=== PATIENT | female | born 1995 ===

== ENCOUNTER → 2024-10-20 11:06 | Outpatient (CLI) | payer OTHER, SELFPAY ==
--- NOTE | 2024-10-20 11:07 | DI.US.S_ITS ---
PROCEDURE: US PELVIC COMPLETE INDICATIONS: asses for structural anomaly TECHNIQUE: Real-time scanning was performed of the pelvic organs, with image documentation. Additional endovaginal scanning was necessary due to incomplete visualization of the adnexal and endometrial structures by transabdominal scanning. COMPARISON: None. FINDINGS: Uterus: 7 x 2.9 x 4.7 cm. Endometrium measures 9 mm, within normal limits for age. Ovaries: Mildly enlarged right ovary measuring 15 cc. Left ovary measures 10 cc. Fewer than 12 follicles are seen per ovary. Other: No pathologic free abdominal or pelvic fluid. IMPRESSION: No acute or significant pelvic abnormality by ultrasound. Mildly enlarged right ovary is present measuring 15 cc, but without dominant solid or cystic lesion. Dictated by: Thomas Lares M.D. on 10/20/2024 at 12:53 Approved by: Thomas Lares M.D. on 10/20/2024 at 12:54
== END ==
LOC: US 11:07
PROVIDERS: PCP Family Medicine; Referring Provider Family Medicine; Visit Provider Obstetrics & Gynecology
DX: Z30.09 Encounter for other general counseling and advice on contraception (principal); Z86.018 Personal history of other benign neoplasm; N83.8 Other noninflammatory disorders of ovary, fallopian tube and broad ligament; Z78.9 Other specified health status
CPT/HCPCS: 36415; 76830; 76856; 84144; 84999

== ENCOUNTER → 2024-10-20 11:49 | Outpatient (CLI) | payer OTHER, SELFPAY | PROVIDERS: PCP Family Medicine; Referring Provider Obstetrics & Gynecology; Visit Provider Obstetrics & Gynecology | DX: Z78.9 Other specified health status (principal) | CPT/HCPCS: 36415; 84144; 84999 ==

== ENCOUNTER 2025-01-02 14:02 | Emergency (ER) | payer OTHER, SELFPAY ==
[2025-01-02] VITALS (12 sets, daily range): BP systolic 105–155; BP diastolic 56–89; PULSE 68–86; RESP 13–23; TEMP 36.7; O2SAT 92–100; BMI 22.6
--- NOTE | 2025-01-02 14:39 | ED_ITS ---
HPI - Abdominal Pain <Sharon Brooks PA-C - Last Filed: 01/02/25 19:13> General Chief Complaint: Abdominal Pain Stated Complaint: Blood in stool. stomach pain x 1 day Time Seen by Provider: 01/02/25 14:38 Source: patient Mode of arrival: Ambulatory History of Present Illness HPI narrative: Ms. Ellis is a pleasant 29-year-old female, otherwise healthy with no reported past medical history who presents to the emergency department with her for abdominal pain and bright red blood in her stool x1 day. Patient states last night she experienced sudden sharp pain in the epigastrium region of her abdomen that radiated to the left side of her chest. Lying down made this pain worse. The pain seemed to spread to around her umbilical area, she attempted to have a bowel movement with no relief, so she went to sleep. Reports that she has intermittently experienced left-sided chest pain in the past so she was not concerned. When she woke up this morning she reports that she generally felt better and went to work. She is a teacher. She is unable to go to the bathroom often so on her lunch break she went to the bathroom and while attempting to have a bowel movement had periumbilical abdominal pain, rectal pain, and then noticed bright red blood in the toilet with brown stool. This is the 1st time she has ever had bright red blood in the toilet, reports she has had anal fissures in the past but this did not feel the same. She has not had any chest pain today. She otherwise feels well and denies any fevers, chills, nausea, vomiting diarrhea, constipation. No melena. No dysuria or vaginal bleeding. Reports her menstrual cycle ended a few days ago. She does not regularly use NSAIDs. She would have a glass of wine last night. No prior abdominal surgeries or personal or family history of inflammatory bowel disease. No rectal intercourse. Related Data Previous Rx's ?Medication ?Instructions ?Recorded pantoprazole 40 mg tablet,delayed 40 mg PO DAILY 2 virgil carrillo #14 tabs 01/02/25 release (Protonix) Allergies Allergy/AdvReac Type Severity Reaction Status Date / Time No Known Drug Allergies Allergy Unverified 09/28/24 08:08 Review of Systems <Sharon Brooks PA-C - Last Filed: 01/02/25 19:13> Review of Systems ROS Unobtainable: All systems reviewed & are unremarkable except as noted in HPI and below Patient History <Sharon Brooks PA-C - Last Filed: 01/02/25 19:13> Medical History Attempting to conceive Social History Smoking Status: Never smoker Smoking Status: Never smoker Exam <Sharon Brooks PA-C - Last Filed: 01/02/25 19:13> Narrative Exam Narrative: GENERAL: 29 year old patient appears stated age. Well-developed patient, in no acute distress. HEAD: Atraumatic. Normocephalic. EYES: No scleral icterus. No injection or drainage. NECK: Trachea midline. Cervical ROM intact. CARDIOVASCULAR: Regular rate and rhythm. RESPIRATORY: ?Nonlabored respirations. ?Speaking in clear, full sentences. ?Clear to auscultation. Breath sounds equal bilaterally. No wheezes, rales, or rhonchi. ? GASTROINTESTINAL: Abdomen soft, non-tender, nondistended. Bowel sounds present. Patient reports subjective pain and periumbilical region. Negative Lockwood's sign or McBurney's point tenderness. Patient gave verbal consent for external rectal exam. Exam reveals no obvious hemorrhoids or fissures, no swelling or abscess. EXTREMITIES: No LE edema or calf tenderness BL. BACK: No CVA tenderness. NEURO: AOx3. ?Clear speech. ?Moves all 4 extremities appropriately. SKIN: No rash or erythema of visible areas Initial Vital Signs Initial Vital Signs: Vital Signs Temperature 98.1 F 01/02/25 14:07 Pulse Rate 86 01/02/25 14:07 Respiratory Rate 17 01/02/25 14:07 Blood Pressure 155/89 H 01/02/25 14:07 Pulse Oximetry 100 01/02/25 14:07 Oxygen Delivery Method Room Air 01/02/25 14:07 <Macie Mcdonald MD - Last Filed: 01/02/25 23:51> Initial Vital Signs Initial Vital Signs: Vital Signs Temperature 98.1 F 01/02/25 14:07 Pulse Rate 86 01/02/25 14:07 Respiratory Rate 17 01/02/25 14:07 Blood Pressure 155/89 H 01/02/25 14:07 Pulse Oximetry 100 01/02/25 14:07 Oxygen Delivery Method Room Air 01/02/25 14:07 Course <Sharon Brooks PA-C - Last Filed: 01/02/25 19:13> Orders Ordered: ED Orders 01/02/25 15:00 Complete Blood Count AUTO DIFF Stat Comprehensive Metabolic Panel Stat Lipase Stat 01/02/25 15:25 Urine Culture Stat Urine Microscopic Stat Discontinued Medications Al Hydrox/Mg Hydrox/Simethicone 30 ml/ Lidocaine HCl 15 ml 0 ml PO NOW ONE Stop: 01/02/25 18:43 Last Admin: 01/02/25 19:03 Dose: 45 ml Documented By: CAL Sodium Chloride (Normal Saline 0.9%) 1,000 mls @ 1,000 mls/hr IV BOLUS ONE Stop: 01/02/25 15:49 Last Infusion: 01/02/25 17:14 Dose: Infused Documented By: Admin: 01/02/25 15:14 Dose: 1,000 mls/hr Documented By: CAL Ondansetron HCl (Ondansetron 4 Mg/2 Ml Inj) 4 mg IV NOW PRN PRN Reason: Nausea And Vomiting Ondansetron HCl (Ondansetron 4 Mg Odt) 4 mg PO NOW PRN PRN Reason: Nausea And Vomiting Pantoprazole Sodium (Pantoprazole 40 Mg Vial) 40 mg IV NOW ONE Stop: 01/02/25 14:51 Last Admin: 01/02/25 15:14 Dose: 40 mg Documented By: CAL Vital Signs Vital signs: Vital Signs - 8 hr 01/02/25 16:00 01/02/25 16:13 01/02/25 16:13 Pulse Rate 69 70 Respiratory Rate 19 18 Blood Pressure 105/57 L Pulse Oximetry 100 100 01/02/25 16:32 01/02/25 16:37 01/02/25 16:37 Pulse Rate 82 68 Respiratory Rate 16 Blood Pressure 109/62 Pulse Oximetry 92 100 01/02/25 17:00 01/02/25 17:00 01/02/25 17:19 Pulse Rate 75 Respiratory Rate 13 Blood Pressure 108/68 112/62 Pulse Oximetry 100 01/02/25 17:19 01/02/25 17:30 01/02/25 17:30 Pulse Rate 69 71 Respiratory Rate 13 14 Blood Pressure 105/56 L Pulse Oximetry 100 100 01/02/25 18:00 01/02/25 18:00 01/02/25 18:30 Pulse Rate 75 Respiratory Rate 15 Blood Pressure 106/59 L 110/61 Pulse Oximetry 100 01/02/25 18:30 01/02/25 19:00 01/02/25 19:00 Pulse Rate 84 70 Respiratory Rate 23 15 Blood Pressure 116/67 Pulse Oximetry 99 100 <Macie Mcdonald MD - Last Filed: 01/02/25 23:51> Orders Ordered: ED Orders 01/02/25 15:00 Complete Blood Count AUTO DIFF Stat Comprehensive Metabolic Panel Stat Lipase Stat 01/02/25 15:25 Urine Culture Stat Urine Microscopic Stat Discontinued Medications Al Hydrox/Mg Hydrox/Simethicone 30 ml/ Lidocaine HCl 15 ml 0 ml PO NOW ONE Stop: 01/02/25 18:43 Last Admin: 01/02/25 19:03 Dose: 45 ml Documented By: CAL Sodium Chloride (Normal Saline 0.9%) 1,000 mls @ 1,000 mls/hr IV BOLUS ONE Stop: 01/02/25 15:49 Last Infusion: 01/02/25 17:14 Dose: Infused Documented By: Admin: 01/02/25 15:14 Dose: 1,000 mls/hr Documented By: CAL Ondansetron HCl (Ondansetron 4 Mg/2 Ml Inj) 4 mg IV NOW PRN PRN Reason: Nausea And Vomiting Ondansetron HCl (Ondansetron 4 Mg Odt) 4 mg PO NOW PRN PRN Reason: Nausea And Vomiting Pantoprazole Sodium (Pantoprazole 40 Mg Vial) 40 mg IV NOW ONE Stop: 01/02/25 14:51 Last Admin: 01/02/25 15:14 Dose: 40 mg Documented By: CLA Vital Signs Vital signs: Vital Signs - 8 hr 01/02/25 16:00 01/02/25 16:13 01/02/25 16:13 Pulse Rate 69 70 Respiratory Rate 19 18 Blood Pressure 105/57 L Pulse Oximetry 100 100 01/02/25 16:32 01/02/25 16:37 01/02/25 16:37 Pulse Rate 82 68 Respiratory Rate 16 Blood Pressure 109/62 Pulse Oximetry 92 100 01/02/25 17:00 01/02/25 17:00 01/02/25 17:19 Pulse Rate 75 Respiratory Rate 13 Blood Pressure 108/68 112/62 Pulse Oximetry 100 01/02/25 17:19 01/02/25 17:30 01/02/25 17:30 Pulse Rate 69 71 Respiratory Rate 13 14 Blood Pressure 105/56 L Pulse Oximetry 100 100 01/02/25 18:00 01/02/25 18:00 01/02/25 18:30 Pulse Rate 75 Respiratory Rate 15 Blood Pressure 106/59 L 110/61 Pulse Oximetry 100 01/02/25 18:30 01/02/25 19:00 01/02/25 19:00 Pulse Rate 84 70 Respiratory Rate 23 15 Blood Pressure 116/67 Pulse Oximetry 99 100 MDM - Abdominal Pain <Sharon Brooks PA-C - Last Filed: 01/02/25 19:13> Medical Records Attestation: I reviewed the patient's medical records. Lab Data 01/02/25 15:00 01/02/25 15:00 Labs: Lab Results 01/02/25 01/02/25 Range/Units 15:00 15:25 WBC 5.3 (4.5-11.0) X10^3/uL RBC 5.42 H (4.0-5.2) X10^6/uL Hgb 12.6 (12.0-16.0) g/dL Hct 39.2 (36-46) % MCV 72.3 L (80-100) fL MCH 23.2 L (26-34) PG MCHC 32.1 (30-36) % RDW 14.3 (11.6-14.8) % Plt Count 196 (150-400) X10^3/uL Neut % (Auto) 50.9 (50-75) % Lymph % (Auto) 37.7 (25-40) % [place] % (Auto) 8.3 (3-14) % Eos % (Auto) 2.1 (2-4) % Baso % (Auto) 1.0 (0-2) % Neut # (Auto) 2700 (1760-8292) /uL Lymph # (Auto) 2000 (9535-3120) /uL [place] # (Auto) 400 (0-900) /uL Eos # (Auto) 100 (0-450) /uL Baso # (Auto) 100 (0-100) /uL Sodium 141 (137-145) mmol/L Potassium 3.7 (3.4-5.1) mmol/L Chloride 104 (98-107) mmol/L Carbon Dioxide 26 (22-32) mmol/L BUN 22 H (7-17) mg/dL Creatinine 0.73 (0.52-1.04) mg/dL Estimated GFR > 60 (>60) mL/min BUN/Creatinine Ratio 30.1 H (6-22) Glucose 87 (70-99) mg/dL Calcium 9.3 (8.4-10.2) mg/dL Total Bilirubin 1.7 H (0.2-1.3) mg/dL AST 26 (14-36) IU/L ALT 14 (<35) IU/L Alkaline Phosphatase 43 (38-126) U/L Total Protein 7.9 (6.3-8.2) g/dL Albumin 5.0 (3.5-5.0) g/dL Globulin 2.9 (1.7-4.1) g/dL Albumin/Globulin Ratio 1.7 (1.0-2.8) Lipase 144 (23-300) U/L Urine RBC None seen (0-5/HPF) Urine WBC 0-1/hpf (0-5/HPF) Ur Squamous Epith Cells 0-1 /hpf (0-5/HPF) Urine Bacteria Occasional (0-1) (None) Ur Culture Indicated? Cult not indicated Vol Urine Centrifuged 10ml (spun) Point of care testing: Point of Care Testing Test Results Negative Urine Dip Bedside Urine Glucose Negative Bedside Urine Bilirubin - Negative Bedside Urine Ketone - Negative Urine Specific [place] 1.010 Bedside Urine Occult Blood - Negative Bedside Urine pH 7.5 Bedside Urine Protein - Negative Bedside Urine Urobilinogen - Negative Bedside Urine Nitrite - Negative Bedside Urine Leukocytes - Negative Esterase Imaging Data Chest x-ray: Radiologist's Impression: PROCEDURE: XR CHEST 1V INDICATIONS: epigastric/left chest pain TECHNIQUE: One view of the chest was acquired. COMPARISON: None. FINDINGS: Surgical changes and devices: None. Lungs and pleura: Lungs are clear. No pleural effusions or pneumothorax. Mediastinum: Mediastinal contours appear normal. Heart size is normal. Bones and chest wall: No suspicious bony lesions. Overlying soft tissues appear unremarkable. IMPRESSION: No acute cardiopulmonary abnormality is seen. Dictated by: Jose Trevino M.D. on 01/02/2025 at 16:28 Approved by: Jose Trevino M.D. on 01/02/2025 at 16:29 CT scan - abdomen/pelvis: Radiologist's Impression: PROCEDURE: CT ABDOMEN PELVIS W CON INDICATIONS: BRB in stool; rectal and epigastric pain TECHNIQUE: After the administration of intravenous contrast, axial sections acquired from the lung bases to the pubic symphysis. Coronal and sagittal reformats were performed. For radiation dose reduction, the following was used: automated exposure control, adjustment of mA and/or kV according to patient size. COMPARISON: None. FINDINGS: Image quality: Diagnostic. Lower Chest: No significant findings. ABDOMEN: Liver: No solid mass. Gallbladder: No radiopaque gallstones or wall thickening. Biliary ducts: No biliary dilation. Pancreas: No ductal dilation. Spleen: Size is within normal limits. Adrenal Glands: No adrenal nodules. Kidneys and Ureters: No hydronephrosis. No solid mass. No complex renal cystic lesion which requires follow up. Stomach and Bowel: Normal colonic caliber, without significant wall thickening. Large amount of fecal burden seen throughout the colon. No abnormal wall thickening. Normal appendix. No evidence for small bowel obstruction or associated inflammatory changes. Peritoneum: No abnormal intraperitoneal fluid. No free air. Ventral Wall: No significant ventral hernia. Abdominal Nodes: No retroperitoneal or mesenteric adenopathy by size criteria. Vessels: Aorta and inferior vena cava are normal in size. PELVIS: Pelvic Organs: Unremarkable. Bladder: No bladder wall thickening, accounting for underdistention. Pelvic Nodes: No enlarged lymph nodes. Miscellaneous: No inguinal hernias are seen. Bones: No aggressive osseous abnormality. Visualized osseous structures appear intact without acute fracture or focal destructive lesion. No acute compression fractures of the imaged spine. IMPRESSION: CT abdomen and pelvis without acute abnormalities to explain patient's symptoms. No suspicious distal colonic or rectal mass lesions. Recommend further evaluation with direct visualization. Normal appendix. Large fecal material seen throughout the colon. Query history of constipation. No evidence for obstructive uropathy. Dictated by: Charles Anderson M.D. on 01/02/2025 at 17:54 Approved by: Charles Anderson M.D. on 01/02/2025 at 18:17 MDM Narrative Medical decision making narrative: 29-year-old female, otherwise healthy with no reported past medical history who presents to the emergency department with her for abdominal pain and bright red blood in her stool x1 day. Differential diagnosis includes but is not limited to gastroesophageal reflux disease, gastritis, pancreatitis, rectal fissure, hemorrhoid, colitis, diverticulitis, etc. On exam the patient is in no acute distress, nontoxic appearing, vital signs appropriate. Abdominal exam reveals subjective periumbilical discomfort but no tenderness rebound or guarding. External rectal exam reveals no obvious fissure or hemorrhoid. Given history of epigastric and periumbilical abdominal pain, rectal pain and bright red blood in the stool, with short-lived left-sided chest pain last night that is not been present today, we will obtain CBC, CMP, lipase, UA, chest x-ray can CT abdomen pelvis with IV contrast treat with IV fluids and Protonix. Labs reveal normal WBC count 5.3, slightly elevated RBC count 5.42, hemoglobin 12.6 hematocrit 39.2. CMP reveals normal sodium 141, potassium 3.7, slight elevation BUN 22 creatinine normal 0.73, BUN creatinine ratio was 30.1. Glucose 87. Elevation of total bilirubin 1.7, remainder of LFTs are normal, lipase, 144. Urinalysis negative, negative. 1600: Re-examined patient, she is feeling well, still waiting on CT, reviewed all lab work, she denies a known history of elevated bilirubin. 1800: Contacted CT as we are still waiting on results, CT confirmed that her scan is in a queue awaiting to be read, not yet read. 1835: Printed and discussed chest x-ray and abdominal CT results with the patient and her at the bedside. Chest x-ray reveals no acute cardiopulmonary abnormality. Abdominal CT reveals no acute abnormalities to explain the patient's symptoms, normal appendix, large fecal material seen throughout the colon. Discussed with the patient diagnosis of lower GI bleed with suspicion for internal rectal fissure or hemorrhoid secondary to her significant constipation. She still is able to pass spontaneous bowel movements. Reports that she is actually struggled with constipation for many years. Discussed that I would like her to start taking MiraLax daily in addition to increasing hydration, fruits and vegetables. Given her epigastric pain, we also discussed possibilities of GERD or gastritis, we will trial GI cocktail in addition to Protonix. She did do well with GI cocktail here in the ED. Advised patient follow up with PCP for colonoscopy and further management. Discussed strict ER return precautions. Patient verbalized understanding of all information is agreeable with the plan, she is tolerating p.o., abdominal exam benign, stable for discharge home. <Macie Mcdonald MD - Last Filed: 01/02/25 23:51> Lab Data Labs: Lab Results 01/02/25 01/02/25 Range/Units 15:00 15:25 WBC 5.3 (4.5-11.0) X10^3/uL RBC 5.42 H (4.0-5.2) X10^6/uL Hgb 12.6 (12.0-16.0) g/dL Hct 39.2 (36-46) % MCV 72.3 L (80-100) fL MCH 23.2 L (26-34) PG MCHC 32.1 (30-36) % RDW 14.3 (11.6-14.8) % Plt Count 196 (150-400) X10^3/uL Neut % (Auto) 50.9 (50-75) % Lymph % (Auto) 37.7 (25-40) % [place] % (Auto) 8.3 (3-14) % Eos % (Auto) 2.1 (2-4) % Baso % (Auto) 1.0 (0-2) % Neut # (Auto) 2700 (5634-9883) /uL Lymph # (Auto) 2000 (8491-6508) /uL [place] # (Auto) 400 (0-900) /uL Eos # (Auto) 100 (0-450) /uL Baso # (Auto) 100 (0-100) /uL Sodium 141 (137-145) mmol/L Potassium 3.7 (3.4-5.1) mmol/L Chloride 104 (98-107) mmol/L Carbon Dioxide 26 (22-32) mmol/L BUN 22 H (7-17) mg/dL Creatinine 0.73 (0.52-1.04) mg/dL Estimated GFR > 60 (>60) mL/min BUN/Creatinine Ratio 30.1 H (6-22) Glucose 87 (70-99) mg/dL Calcium 9.3 (8.4-10.2) mg/dL Total Bilirubin 1.7 H (0.2-1.3) mg/dL AST 26 (14-36) IU/L ALT 14 (<35) IU/L Alkaline Phosphatase 43 (38-126) U/L Total Protein 7.9 (6.3-8.2) g/dL Albumin 5.0 (3.5-5.0) g/dL Globulin 2.9 (1.7-4.1) g/dL Albumin/Globulin Ratio 1.7 (1.0-2.8) Lipase 144 (23-300) U/L Urine RBC None seen (0-5/HPF) Urine WBC 0-1/hpf (0-5/HPF) Ur Squamous Epith Cells 0-1 /hpf (0-5/HPF) Urine Bacteria Occasional (0-1) (None) Ur Culture Indicated? Cult not indicated Vol Urine Centrifuged 10ml (spun) Point of care testing: Point of Care Testing Test Results Negative Urine Dip Bedside Urine Glucose Negative Bedside Urine Bilirubin - Negative Bedside Urine Ketone - Negative Urine Specific [place] 1.010 Bedside Urine Occult Blood - Negative Bedside Urine pH 7.5 Bedside Urine Protein - Negative Bedside Urine Urobilinogen - Negative Bedside Urine Nitrite - Negative Bedside Urine Leukocytes - Negative Esterase Discharge Plan Departure Patient Disposition: Home Clinical Impression: Blood in stool, sharri, Total bilirubin, elevated Constipation Qualifiers: Constipation type: unspecified constipation type Qualified Code(s): K59.00 - Constipation, unspecified Instructions: DI for Gastroesophageal Reflux Disease (GERD), DI for Constipation, DI for Rectal Bleeding Activity Restrictions/Additional Instructions: Dear Ms. Hendricksone, Thank you for coming to the emergency department. Today you were evaluated for abdominal pain in addition to rectal bleeding. Overall your lab work and imaging was reassuring and at this time you do not need to be admitted to the hospital around emergent surgery. Your CT scan did reveal a significant amount of stool prior colon and I would like you to start taking MiraLax daily to help soften stools. This will also help to prevent constipation and rectal pain and potentially continued rectal bleeding. Please use 1 serving of MiraLax in about 4 oz of water daily for at least the next 1-2 months to help regulate your bowel movements. You can take more than 1 serving of MiraLax if needed, especially on the weekend as we discussed. [id number] Preparation H can help with hemorroids. If you do have a painful bowel movement, soaking in Epsom salt bath can be helpful. Please also increase hydration, increase fiber rich foods in your diet such as leafy greens, pains, fruits. Please follow up with your primary care doctor for colonoscopy for further evaluation of your rectal bleeding. As we discussed, I have also prescribed you Protonix to help with any possible acid reflux, decreasing spicy or acidic foods in the diet in addition to NSAIDs and alcohol can help with the symptoms. Your labs revealed a slightly elevated Total Bilirubin of 1.7 (normal 0.2-1.3). Please have this rechecked with your primary care doctor. Please return to the emergency department if you develop severe pain, increased bleeding associated with lightheadedness, dizziness or shortness of breath, fevers or any other concerns. Please follow up with your primary care doctor within the next 2-3 days for ER follow-up. (If you do not have a PCP you can call [phone]. ?to schedule an appointment with an [facility] Primary Care Provider) IF YOU DEVELOP ANY NEW OR WORSENING SYMPTOMS, RETURN TO THE ER! Please read the attached instructions, they highlight more specific treatments and interventions for you at home. Thank you for letting me participate in your care, Sharon Brooks PA-C Prescriptions: New pantoprazole [Protonix] 40 mg tablet,delayed release (DR/EC) 40 mg PO DAILY 14 Days Qty: 14 0RF Referrals: [facility] [Provider Group] Referral Note: Colonoscopy Bettina Smith DO [Primary Care Provider, Family Practice] Stand Alone Forms: Patient Portal/API ED Sign-out <Macie Mcdonald MD - Last Filed: 01/02/25 23:51> [facility]: I was immediately available in the department for consultation throughout this patient's visit. Macie Mcdonald MD
--- NOTE | 2025-01-02 14:50 | DI.CT.S_ITS ---
PROCEDURE: CT ABDOMEN PELVIS W CON INDICATIONS: BRB in stool; rectal and epigastric pain TECHNIQUE: After the administration of intravenous contrast, axial sections acquired from the lung bases to the pubic symphysis. Coronal and sagittal reformats were performed. For radiation dose reduction, the following was used: automated exposure control, adjustment of mA and/or kV according to patient size. COMPARISON: None. FINDINGS: Image quality: Diagnostic. Lower Chest: No significant findings. ABDOMEN: Liver: No solid mass. Gallbladder: No radiopaque gallstones or wall thickening. Biliary ducts: No biliary dilation. Pancreas: No ductal dilation. Spleen: Size is within normal limits. Adrenal Glands: No adrenal nodules. Kidneys and Ureters: No hydronephrosis. No solid mass. No complex renal cystic lesion which requires follow up. Stomach and Bowel: Normal colonic caliber, without significant wall thickening. Large amount of fecal burden seen throughout the colon. No abnormal wall thickening. Normal appendix. No evidence for small bowel obstruction or associated inflammatory changes. Peritoneum: No abnormal intraperitoneal fluid. No free air. Ventral Wall: No significant ventral hernia. Abdominal Nodes: No retroperitoneal or mesenteric adenopathy by size criteria. Vessels: Aorta and inferior vena cava are normal in size. PELVIS: Pelvic Organs: Unremarkable. Bladder: No bladder wall thickening, accounting for underdistention. Pelvic Nodes: No enlarged lymph nodes. Miscellaneous: No inguinal hernias are seen. Bones: No aggressive osseous abnormality. Visualized osseous structures appear intact without acute fracture or focal destructive lesion. No acute compression fractures of the imaged spine. IMPRESSION: CT abdomen and pelvis without acute abnormalities to explain patient's symptoms. No suspicious distal colonic or rectal mass lesions. Recommend further evaluation with direct visualization. Normal appendix. Large fecal material seen throughout the colon. Query history of constipation. No evidence for obstructive uropathy. Dictated by: Charles Anderson M.D. on 01/02/2025 at 17:54 Approved by: Charles Anderson M.D. on 01/02/2025 at 18:17
--- NOTE | 2025-01-02 14:50 | DI.RAD.S_ITS ---
PROCEDURE: XR CHEST 1V INDICATIONS: epigastric/left chest pain TECHNIQUE: One view of the chest was acquired. COMPARISON: None. FINDINGS: Surgical changes and devices: None. Lungs and pleura: Lungs are clear. No pleural effusions or pneumothorax. Mediastinum: Mediastinal contours appear normal. Heart size is normal. Bones and chest wall: No suspicious bony lesions. Overlying soft tissues appear unremarkable. IMPRESSION: No acute cardiopulmonary abnormality is seen. Dictated by: Jose Trevino M.D. on 01/02/2025 at 16:28 Approved by: Jose Trevino M.D. on 01/02/2025 at 16:29
[2025-01-02 15:08] LABS: Add Manual Diff / Slide Review NO; Hematocrit 39.2 % (36-46); Hemoglobin 12.6 g/dL (12.0-16.0); Lymphocytes Absolute Auto 2000 /uL (1100-4500); Mean Corpuscular HGB Conc 32.1 % (30-36); Mean Corpuscular Hemoglobin 23.2 PG (26-34); Mean Corpuscular Volume 72.3 fL (80-100); Platelet Count 196 X10^3/uL (150-400)
[2025-01-02] MEDS: SODIUM CHLORIDE 0.9% 1,000 ML 1000 ML IV (15:14)
[2025-01-02] MEDS: PANTOPRAZOLE 40 MG VIAL IV (15:14)
[2025-01-02 15:21] LABS: Alanine Aminotransferase 14 IU/L (<35); Albumin 5.0 g/dL (3.5-5.0); Albumin Globulin Ratio 1.7 (1.0-2.8); Alkaline Phosphatase 43 U/L (38-126); Blood Urea Nitrogen 22 mg/dL (7-17); Calcium 9.3 mg/dL (8.4-10.2); Carbon Dioxide 26 mmol/L (22-32); Chloride 104 mmol/L (98-107); Estimated Glomerular Filt Rate > 60 mL/min (>60); Globulin 2.9 g/dL (1.7-4.1); Glucose 87 mg/dL (70-99); HEMOLYSIS < 15 (0-50); Lipase 144 U/L (23-300); Potassium 3.7 mmol/L (3.4-5.1); Sodium 141 mmol/L (137-145); Total Protein 7.9 g/dL (6.3-8.2)
[2025-01-02 15:53] LABS: Culture Indicated Urine Cult Not Indicated
[2025-01-02] MEDS: MAG HYDROX/ALUMINUM/SIMETH SUS 30 ML, LIDOCAINE VISCOUS 2% 15 ML PO (19:03)
== END 2025-01-02 19:14 | disposition home or self-care (01) ==
PROVIDERS: Emergency Provider Physician Assistant; PCP Family Medicine
DX: K92.1 Melena (principal); R07.9 Chest pain, unspecified; K59.00 Constipation, unspecified; R17 Unspecified jaundice
CPT/HCPCS: 36415; 71045; 74177; 80053; 81003; 81015; 81025; 83690; 85025; 87086; 96361; 96374; 99284; J2470; J7030; Q9967